=== PATIENT | female | born 1995 | race African-American/Black ===

== ENCOUNTER 2022-08-01 09:48 | Emergency (ER) | payer OTHER ==
[~2022-08-01] VITALS: Ht 167.6 cm; Wt 80.0 kg
[2022-08-01 09:51] VITALS: BP 151/103
[2022-08-01] MEDS ORDERED: IBUPROFEN 600MG TABLET PO ONE (10:15)
[2022-08-01] MEDS ORDERED: ACETAMINOPHEN 325MG TABLET PO ONE (10:15)
[2022-08-01] MEDS ORDERED: AMOX-494 MT (11:12)
== END 2022-08-01 11:18 | disposition home or self-care (01) ==
LOC: ER 09:48
DX: H66.91 Otitis media, unspecified, right ear (principal)
CPT/HCPCS: 99283